=== PATIENT | female | born 1940 | race Caucasian/White ===

== ENCOUNTER 2017-08-12 17:42 | Observation (INO) | payer MEDICARE, OTHER ==
[~2017-08-12] VITALS: Ht 162.6 cm; Wt 65.9 kg
--- NOTE | ~2017-08-12 | HEMODYNAMI ---
PATIENT:JONATAN CHEN MEDICAL RECORD: [id number] : 42 LOCATION:[facility] D.7 ADMISSION DATE: 08/12/17 Generatedon:08/13/201711:12 Patient name: JONATAN CHEN Patient #: [id number] SSN: D OB: 1940 Date of study: 08/13/2017 Page: Of Hemodynamic Procedure Report Patient Data Patient Demographics Procedure consent was obtained First Name: JONATAN Gender: Female Last Name: APRIL : 1940 Patient #: [id number] Age: 76 year(s) Race: Unknown Additional ID: [id number] Contact details [address]: [address] [place] [address] State: [place] City: [place] Zip code: [address] Admission Admission Data Admission Date: 08/12/2017 Admission Time: 20:14 Room #: 2117 Procedure Procedure Types Cath Procedure Diagnostic Procedure LHC [facility] w/Coronaries PCI Procedure Coronary Stent Coronary Stent Initial Procedure Description Procedure Date Procedure Date: 08/13/2017 Procedure Start Time: 10:46 Procedure End Time: 11:09 Procedure Staff Name Function Aidan Kinsey MD Performing Physician Lauryn Lange RT Monitor David Feliciano RN Nurse Venice Weeks RT Scrub Procedure Data Cath Procedure Fluoroscopy Diagnostic fluoroscopy Total fluoroscopy Time: 5.8 time: 5.8 min min Diagnostic fluoroscopy Total fluoroscopy dose: 400 dose: 400 mGy mGy Contrast Material Contrast Material Type Amount (ml) Isovue 300 103 Entry Location Entry Primary Successful Side Size Upsize Upsize Entry Closure Brady ccessful Closure Location (Fr) 1 (Fr) 2 (Fr) Remarks Device Remarks Radial Right 6 Fr Mechanical TR artery Short Compression Estimated blood loss: 10 ml Diagnostic catheters Device Type Used For End Catheter Placement DIAGNOSTIC Richard 110cm Procedure 5Fr catheter ([id number]) Procedure Complications No complications Procedure Medications Medication Administration Route Dosage 0.9% NaCl I.V. 100 ml/hr Oxygen etCO2 Nasal cannula 2 l/min Heparin Flush Bag added to field 2 bags (1000units/500ml NS) Lidocaine 2% added to field 20 Radial Cocktail added to field 1 syringe (Verapomil 2mg/Nitro 400mcg/Heparin 1500units) Versed I.V. 1 mg Fentanyl I.V. 25 mcg Radial Cocktail I.A. 1 syringe (Verapomil 2mg/Nitro 400mcg/Heparin 1500units) Heparin Bolus I.V. 5000 units Nitroglycerin IC/IA I.C. 150 mcg Plavix P.O. 300 mg Hemodynamics Rest Heart Rate: 67 (bpm) Pressure Samples Time Site Value (mmHg) Purpose Heart Use Rate(bpm) 10:49 LV 137/5,20 EDP 63 10:49 AO 130/77(95) Pullback 64 10:49 LV 141/5,23 Pullback 64 Gradients Valve Time Site 1 Site 2 Mean SEP/DFP Peak To Heart Use (mmHg) (sec/min) Peak Rate (mmHg) (bpm) Aortic 10:49 LV AO 19 22 11 64 141/5,23 130/77(95) Calculations Valve P-P Mean Valve Index Valve Source Name Gradient Area Flow (cm2) Aortic 11 19 11 19 Snapshots Pre Cath Intra NCS Post Cath Vital Signs Time Heart Resp SPO2 etCO2 NIBP (mmHg) Rhythm Pain Sedation Rate (ipm) (%) (mmHg) Status Level (bpm) 10:31:30 77 14 99 0 161/94(132) NSR 0 (11) 10(A) , No pain 10:36:17 72 13 96 0 145/75(116) NSR 0 (11) 10(A) , No pain 10:40:58 60 19 98 35.3 146/79(115) NSR 0 (11) 10(A) , No pain 10:46:19 60 14 98 34.5 160/85(131) NSR 0 (11) 10(A) , No pain 10:51:06 63 15 98 33.8 131/74(95) NSR 0 (11) 10(A) , No pain 10:55:42 60 13 97 34.6 140/76(100) NSR 0 (11) 10(A) , No pain 11:00:23 60 12 99 33.1 139/68(97) NSR 0 (11) 10(A) , No pain 11:05:01 60 14 100 36.1 141/75(118) NSR 0 (11) 10(A) , No pain 11:09:40 108 13 99 33.8 137/76(96) NSR 0 (11) 10(A) , No pain Medications Time Medication Route Dose Verified Delivered Reason Not es Effectiveness by by 10:40:17 0.9% NaCl I.V. 100 David David Per physician ml/hr Braden Feliciano RN RN 10:40:29 Oxygen etCO2 2 l/min David David Per physician Nasal Braden Feliciano cannula RN RN 10:40:39 Heparin Flush added 2 bags David David used for Bag to Lorcatrachito Feliciano procedure (1000units/500ml field RN RN NS) 10:40:50 Lidocaine 2% added 20ml David David for local to vial Lorigan Braden anesthetic field RN RN 10:40:59 Radial Cocktail added 1 David David used for (Verapomil to syringe Lorigan Braden procedure 2mg/Nitro field RN RN 400mcg/Heparin 1500units) 10:41:09 Versed I.V. 1 mg David David for sedation Braden Feliciano RN RN 10:41:23 Fentanyl I.V. 25 mcg David David for sedation Braden Feliciano RN RN 10:47:26 Radial Cocktail I.A. 1 David Aidan for (Verapomil syringe Braden Kinsey MD vasodilation 2mg/Nitro RN 400mcg/Heparin 1500units) 10:59:17 Heparin Bolus I.V. 5000 David David for units Braden Feliciano anticoagulation RN RN 11:05:30 Nitroglycerin I.C. 150 mcg David Aidan for IC/IA Braden Kinsey MD vasodilation RN 11:11:11 Plavix P.O. 300 mg David David for Braden Feliciano antiplatelet RN RN therapy Procedure Log Time Note 10:24:37 Diagnostic Cath status Elective 10:24:49 David Feliciano RN sent for patient. Start room use. 10:24:52 Time tracking: Regular hours (M-F 7:00 - 5:00) 10:24:59 Plan of Care:Hemodynamics will remain stable., Cardiac rhythm will remain stable., Comfort level will be maintained., Respiratory function will remain adequate., Patient/ family verbilizes understanding of procedure., Procedure tolerated without complication., Recovers from procedure without complications.. 10:25:12 Patient received from Pre/Post Procedure Room to CCL 1 Alert and oriented. Tansferred to table in Supine position. 10:30:30 Warm blankets applied, and davis hugger turned on for patient comfort. 10:30:30 Correct patient and procedure confirmed by team. 10:30:32 Signed procedure consent form obtained from patient. 10:30:33 ECG and BP/O2 sat monitors applied to patient. 10:30:34 Vital chart was started 10:30:36 Baseline sample Acquired. 10:30:42 Rhythm: paced 10:30:44 Full Disclosure recording started 10:30:49 H&P Date Dictated: 08/13/2017 New H&P dictated by physician.. 10:30:51 Pre-procedure instructions explained to patient. 10:30:52 Pre-op teaching completed and patient verbalized understanding. 10:30:53 Family in waiting room. 10:30:54 Patient NPO since Midnight. 10:30:56 Is the patient allergic to Iodine/contrast media? No. 10:30:57 Was the patient premedicated? No 10:31:01 Is patient on blood thinner?Yes 10:31:04 ACC The patient was administered the following blood thiners within the last 24 hours: ACCPlavix 10:31:07 Patient diabetic? No. 10:31:09 Previous problem with sedation/anesthesia? No ? 10:31:11 Snore? Yes 10:31:12 Sleep apnea? No 10:31:13 Deviated septum? No 10:31:20 Opens mouth fully? Yes 10:31:23 Sticks out tongue? Yes 10:31:25 Airway obstruction? No ? 10:31:28 Dentures? No ? 10:31:31 Pre procedure: right dorsailis pedis pulse 2+ Normal; easily identifiable; not easily obliterated 10:31:34 Pre procedure: left dorsailis pedis pulse 2+ Normal; easily identifiable; not easily obliterated 10:31:37 Patient pain scale 0/10 ?. 10:31:43 IV patent on arrival in right forearm with 0.9% NaCl at O. 10:31:47 Lab results completed and on chart. 10:31:52 Right Radial & Right Groin area was prepped with chlora-prep and draped in sterile fashion 10::53 Alarms reviewed by RLaurie N. 10::53 Sharps counted by scrub and verified by R.N. 10:39:34 Physician arrived 10:39:34 --------ALL STOP TIME OUT------ 10:39:35 Final Timeout: patient, procedure, and site verified with staff and physician. All members of the team are in agreement. 10:39:40 Right Radial & Right Groin site verified by team. 10:39:44 Physical assessment completed. ASA score P 2 - A patient with mild systemic disease as per Aidan Kinsey MD. 10:39:49 Sedation plan: IV Moderate Sedation Medication:Versed, Fentanyl 10:40:02 Use device set Femoral Dx 10:40:03 ACIST Syringe (15598) opened to sterile field. 10:40:04 Bag Decanter (2002S) opened to sterile field. 10:40:05 Medline Cath Pack ([id number]) opened to sterile field. 10:40:05 DIAGNOSTIC WIRE .035 260cm J wire (987659) opened to sterile field. 10:40:07 ACIST Hand Control (47041) opened to sterile field. 10:40:08 ACIST Manifold (65212) opened to sterile field. 10:40:13 Tegaderm 4 x 4 (1626W) opened to sterile field. 10:40:17 0.9% NaCl 100 ml/hr I.V. was administered by David Feliciano RN; Per physician; 10:40:29 Oxygen 2 l/min etCO2 Nasal cannula was administered by David Feliciano RN; Per physician; 10:40:39 Heparin Flush Bag (1000units/500ml NS) 2 bags added to field was administered by David Feliciano RN; used for procedure; 10:40:49 SHEATH 6Fr Prelude Radial ([id number]) opened to sterile field. 10:40:50 Lidocaine 2% 20ml vial added to field was administered by David Feliciano RN; for local anesthetic; 10:40:59 Radial Cocktail (Verapomil 2mg/Nitro 400mcg/Heparin 1500units) 1 syringe added to field was administered by David Feliciano RN; used for procedure; 10:41:09 Versed 1 mg I.V. was administered by David Feliciano RN; for sedation; 10:41:23 Fentanyl 25 mcg I.V. was administered by David Feliciano RN; for sedation; 10:46:36 Procedure started. 10:46:38 Zero performed for pressure channel P1 10:46:53 Local anesthetic to right radial artery with Lidocaine 2% by Aidan Knisey MD.INITIAL ACCESS ONLY 10:47:05 A 6 Fr Short sheath was inserted into the Right Radial artery 10:47:26 Radial Cocktail (Verapomil 2mg/Nitro 400mcg/Heparin 1500units) 1 syringe I.A. was administered by Aidan Kinsey MD; for vasodilation; 10:48:06 A DIAGNOSTIC Richard 110cm 5Fr catheter ([id number]) was advanced over the wire and used for Procedure. 10:49:48 LV angiography performed. 10:50:07 RCA angiography performed. 10:50:19 EF : 60 % 10:50:38 LCA angiography performed. 10:51:32 Catheter removed. 10:51:34 Proceeding to intervention. 10:51:52 Study PCI Site: [place] mLAD has 80% stenosis. 10:52:32 BMW 190cm [place] 2 J wire ([id number]) opened to sterile field. 10:52:33 COPILOT Valve Control (1409557) opened to sterile field. 10:52:34 INFLATOR Merit BasixCompak (BM8047) opened to sterile field. 10:54:21 6 Fr XBLAD 3.5 SH guide catheter was inserted over the wire 10:55:21 GUIDE 6FR XBLAD 3.5 SH catheter ([id number]) opened to sterile field. 10:59:17 Heparin Bolus 5000 units I.V. was administered by David Feliciano RN; for anticoagulation; 10:59:21 BMW wire advanced. 11:00:22 Wire advanced across lesion. 11:02:02 Inflate balloon Inflation number: 1 A EUPHORA 3.0 x 15 Balloon ([id number]) was prepped and advanced across the Mid LAD, then inflated to 6 LANDON for 0:12 (min:sec). 11:02:17 Balloon removed over the wire. 11:03:59 Place stent Inflation Number: 2 A DEREK RX 3.5 x 18 stent ([id number]) was prepped and advanced across the Mid LAD. The stent was deployed at 12 LANDON for 0:12 (min:sec). 11:04:11 Stent catheter was removed intact over wire. 11:05:30 Nitroglycerin IC/IA 150 mcg I.C. was administered by Aidan Kinsey MD; for vasodilation; 11:06:38 Wire removed. 11:06:39 Guide catheter removed. 11:06:47 TR BAND Standard ([id number]) opened to sterile field. 11:07:09 Sheath removed intact; hemostasis achieved with Mechanical Compression to the Right Radial artery. 11:07:12 Procedure ended.(Physican Out) 11:07:23 Fluoroscopy time 05.80 minutes. 11:07:27 Fluoroscopy dose: 400 mGy 11:07:27 Flurop Dose total: 400 11:07:31 Contrast amount:Isovue 300 103ml. 11:07:34 Sharps counted by scrub and verified by R.N. 11:07:35 Insertion/operative site no bleeding no hematoma. 11:07:40 Post Procedure Pulses reassessed and unchanged 11:07:45 Post-procedure physical assessment completed. ASA score P 2 - A patient with mild systemic disease as per Aidan Kinsey MD. 11:07:52 Post procedure rhythm: sinus rhythm 11:07:56 Estimated blood loss: 10 ml 11:07:58 Post procedure instruction explained to patient.Patient verbalizes understanding. 11:07:59 Patient needs reinforcement of post procedure teaching. 11:08:16 Procedure type changed to Cath procedure, Diagnostic procedure, LHC, LHC w/Coronaries, PCI procedure, Coronary Stent, Coronary Stent Initial 11:08:17 Procedure and supply charges have been captured, reviewed, submitted and are correct. 11:09:09 Procedure Complication : No complications 11:09:12 Vital chart was stopped 11:09:13 See physician's report for complete and final results. 11:09:15 Report given to Pre/Post Procedure Room. 11:09:19 Patient transfered to Pre/Post Procedure Room with Bed. 11:09:22 Procedure ended. 11::22 Full Disclosure recording stopped 11:09:30 End room use (Document Last) 11:09:36 ACC-PCI Only Patient was given prescriptions, or instructed by Aidan Kinsey MD to start/continue the following medications upon discharge: Plavix 11:09:58 TR band inflated with 10cc of air. 11:11:11 Plavix 300 mg P.O. was administered by David Feliciano RN; for antiplatelet therapy; Intervention Summary Intervention Notes Time ActionType Lesion and Equipment Used Action# Pressure Duration Attributes 11:02:02 Inflate Mid LAD EUPHORA 3.0 x 1 6 00:12 balloon 15 Balloon ([id number]) 11:03:59 Place stent Mid LAD DEREK RX 3.5 x 2 12 00:12 18 stent ([id number]) Device Usage Item Name Manufacture Quantity Catalog Number Hospital Part Current Minimal Lot# / Charge Number Stock Stock Serial# Code ACIST Syringe Acist 1 72554 779127 672420 [id number] 20 (96639) [employer] Bag Decanter Microtek 1 2001S 186935 65547 233426 5 () Medical Inc. Medline Cath Cardinal 1 [id number] 564564 20011 066284 5 QuantiaMD ([id number]) DIAGNOSTIC WIRE St Robert 1 157931 714957 657699 877962 30 .035 260cm J wire (263496) ACIST Hand Acist 1 43053 082117 203807 796144 5 Control (40801) [employer] Inc ACIST Manifold Acist 1 65458 770000 323067 851949 5 (96498) [employer] Inc Tegaderm 4 x 4 3M 1 1626W 949645 230974 233206 5 (1626W) SHEATH 6Fr Merit 1 [id number] 942769 053998 394750 5 Prelude Radial Medical ([id number]) DIAGNOSTIC Terumo 1 405024 116730 433899 177254 5 Richard 110cm 5Fr catheter (354204) BMW 190cm [place] 1 [id number] 287122 90719 527990 5 [place] 2 J Vascular wire ([id number]) COPILOT Valve [place] 1 0211390 393878 938994 333637 5 Control Vascular (0355952) INFLATOR Merit Merit 1 NZ9338 289218 542530 415604 15 [employer] ([id number]) GUIDE 6FR XBLAD Cardinal 1 [id number] 422647 127200 245234 3 3.5 Aptera ([id number]) EUPHORA 3.0 x Medtronic 1 [id number] 447969 603748 767303 5 [id number] 15 Balloon ([id number]) DEREK RX 3.5 x Medtronic 1 [id number] 308631 6262168 658345 5 [id number] 18 stent ([id number]) TR BAND Terumo 1 [id number] 679803 635833 116646 40 Standard ([id number]) Signature Audit [place] Stage Time Signature Unsigned Intra-Procedure 08/13/2017 Lauryn Lange 11:12:03 AM RT(R) Signatures Monitor : Lauryn Lange Signature : RT Date : Time : [place] [address] [place] [address]
[2017-08-12 18:16] LABS: BASOPHILS 0.4 % (0-2); EOSINOPHILS 1.6 % (0-7); HEMATOCRIT 40.5 % (36.0-48.0); HEMOGLOBIN 13.7 g/dL (12-16); IMMATURE GRANULOCYTES 0.1 % (0-5); LYMPHOCYTES 24.7 % (15-50); MCH 32.9 pg (26.0-34.0); MCHC 33.8 g/dL (31.0-37.0); MCV 97.4 fL (80.0-100.0); MEAN PLATELET VOLUME 10.4 fL (7.4-10.4); MONOCYTES 7.5 % (2-11); NEUTROPHILS 65.7 % (40-80); PLATELET COUNT 232 10x3/uL (130-400); RBC 4.16 10x6/uL (4.00-5.40); WBC 7.7 10x3/uL (4.8-10.8)
[2017-08-12 18:26] LABS: ALBUMIN 3.8 g/dL (3.4-5.0); ALKALINE PHOSPHATASE 50 U/L (46-116); ALT (SGPT) 28 U/L (10-68); BILIRUBIN - TOTAL 0.44 mg/dL (0.2-1.3); CALC OSMOLALITY 282 mosm/kg (275-300); CALCIUM 9.4 mg/dL (8.5-10.1); CARBON DIOXIDE 25.4 mmol/L (21.0-32.0); CHLORIDE - SERUM 104 mmol/L (98-107); CREATININE - SERUM 0.8 mg/dL (0.6-1.3); GLUCOSE 97 mg/dL (74-106); POTASSIUM - SERUM 4.1 mmol/L (3.5-5.1); PROTEIN - SERUM 7.7 g/dL (6.4-8.2); SODIUM 141 mmol/L (136-145); UREA NITROGEN 19 mg/dL (7-18); eGFR NON AFRICAN AMERICAN 74 mL/min (90-120)
[2017-08-12 18:37] LABS: CHOL - HDL RATIO 4.6 ratio (2.3-4.1); CHOLESTEROL, TOTAL 273 mg/dL (0-200); CKMB 2.8 U/L (0.0-3.6); CREATINE KINASE 94 UL (21-215); HDL CHOLESTEROL 59 mg/dL (32-96); LDL CHOLESTEROL 180 mg/dL (0-100); LDL-HDL RATIO 3.1 ratio (1.5-3.5); TRIGLYCERIDE 172 mg/dL (30-200)
[2017-08-12 18:38] LABS: TROPONIN-I < 0.017 ng/mL (0.000-0.060)
[2017-08-12 18:52] LABS: INR 1.03 (0.85-1.17); PROTIME 13.1 SECONDS (11.6-15.0)
[2017-08-12 19:09] LABS: LIPASE 115 U/L (73-393); PRO BNP 139 pg/mL (0-450)
[2017-08-12 19:14] LABS: APPEARANCE CLEAR (CLEAR); BILIRUBIN NEGATIVE (NEGATIVE); COLOR YELLOW (YELLOW); GLUCOSE NEGATIVE (NEGATIVE); KETONE NEGATIVE (NEGATIVE); NITRITE NEGATIVE (NEGATIVE); PROTEIN NEGATIVE (NEGATIVE); UROBILINOGEN NORMAL (NORMAL)
[2017-08-12] MEDS ORDERED: ZESTRIL10 MG PO (21:52)
[2017-08-12] MEDS ORDERED: ESTRACE1 MG PO (21:53)
[2017-08-13] VITALS: BP 143/72
[2017-08-13 01:06] LABS: CKMB 1.8 U/L (0.0-3.6); CREATINE KINASE 52 UL (21-215)
[2017-08-13 01:07] LABS: TROPONIN-I < 0.017 ng/mL (0.000-0.060)
[2017-08-13 05:25] VITALS: BP 149/75
[2017-08-13 05:43] LABS: BASOPHILS 0.9 % (0-2); EOSINOPHILS 1.7 % (0-7); HEMATOCRIT 35.6 % (36.0-48.0); HEMOGLOBIN 11.8 g/dL (12-16); LYMPHOCYTES 33.8 % (15-50); MCH 32.3 pg (26.0-34.0); MCHC 33.1 g/dL (31.0-37.0); MCV 97.5 fL (80.0-100.0); MEAN PLATELET VOLUME 10.3 fL (7.4-10.4); MONOCYTES 9.9 % (2-11); NEUTROPHILS 53.7 % (40-80); PLATELET COUNT 226 10x3/uL (130-400); RBC 3.65 10x6/uL (4.00-5.40); RDW 13.1 % (11.5-14.5)
[2017-08-13 05:48] LABS: WBC 4.6 10x3/uL (4.8-10.8)
[2017-08-13 06:07] LABS: ALKALINE PHOSPHATASE 41 U/L (46-116); ALT (SGPT) 23 U/L (10-68); CALC OSMOLALITY 285 mosm/kg (275-300); CALCIUM 8.6 mg/dL (8.5-10.1); CARBON DIOXIDE 25.4 mmol/L (21.0-32.0); CHLORIDE - SERUM 109 mmol/L (98-107); CREATINE KINASE 51 UL (21-215); CREATININE - SERUM 0.7 mg/dL (0.6-1.3); GLUCOSE 90 mg/dL (74-106); POTASSIUM - SERUM 3.7 mmol/L (3.5-5.1); SODIUM 143 mmol/L (136-145); TROPONIN-I < 0.017 ng/mL (0.000-0.060); UREA NITROGEN 16 mg/dL (7-18); eGFR NON AFRICAN AMERICAN 86 mL/min (90-120)
[2017-08-13 06:41] VITALS: BP 143/72; Ht 162.6 cm; Wt 65.9 kg
[2017-08-13 10:05] VITALS: BP 147/77
[2017-08-13] MEDS ORDERED: ASPIRIN325 MG PO (15:51)
[2017-08-13] MEDS ORDERED: PLAVIX75 MG PO (15:51)
[2017-08-13 16:58] VITALS: BP 130/86
== END 2017-08-13 17:05 | disposition home or self-care (01) ==
LOC: D.ER 17:42 → D.EDHOLD 20:14 → D.M2 20:14 → OBSVTIME 20:14 → D.M2 20:14
PROVIDERS: Emergency Medicine; Family Medicine; Nurse Practitioner Family
DX: I25.110 Atherosclerotic heart disease of native coronary artery with unstable angina pectoris (principal); I10 Essential (primary) hypertension; Z87.891 Personal history of nicotine dependence; Z95.0 Presence of cardiac pacemaker
CPT/HCPCS: 93458; C9600

== ENCOUNTER → 2018-01-05 07:56 | Outpatient (CLI) | payer MEDICARE, OTHER ==
[~2018-01-05] VITALS: Ht 162.6 cm; Wt 65.9 kg
--- NOTE | ~2018-01-05 | HEMODYNAMI ---
PATIENT:JONATAN CHEN MEDICAL RECORD: [id number] : 42 LOCATION:[facility] ADMISSION DATE: 01/05/18 Generatedon:01/05/201811:39 Patient name: JONATAN CHEN Patient #: [id number] SSN: D OB: 1940 Date of study: 01/05/2018 Page: Of Hemodynamic Procedure Report Patient Data Patient Demographics Procedure consent was obtained First Name: JONATAN Gender: Female Last Name: APRIL : 1940 Patient #: [id number] Age: 77 year(s) Race: Unknown Additional ID: [id number] Contact details [address]: [address] [place] [address] State: [place] City: [place] Zip code: [address] Past Medical History Allergies Allergen Reaction Date Comments Reported Other allergy 01/05/2018 statins Admission Admission Data Admission Date: 01/05/2018 Admission Time: 7:56 Lab Results Lab Result Date: 01/05/2018 Lab Result Time: 8:50 Biochemistry Name Units Result Min Max BUN mg/dl 19 --(----)*- 7 18 Creatinine mg/dl 0.8 --(-*--)-- 0.6 1.3 CBC Name Units Result Min Max Hematocrit % 38.1 *-(----)-- 42 54 Hemoglobin g/dl 12.9 -*(----)-- 13.5 17.5 Procedure Procedure Types Cath Procedure Diagnostic Procedure PPM/ICD Permanent Pacer Generator Exg. Procedure Description Procedure Date Procedure Date: 01/05/2018 Procedure Start Time: 11:24 Procedure Staff Name Function Parveen Cali MD Performing Physician Jer Putnam MD Assisting physician Melissa Barnhart RT Monitor David Feliciano RN Nurse Adi Chong RT Scrub Krish Garcia RT Sales Force Developer Procedure Data Cath Procedure Fluoroscopy Diagnostic fluoroscopy Total fluoroscopy Time: 0 time: 0 min min Estimated blood loss: 5 ml Procedure Medications Medication Administration Route Dosage 0.9% NaCl I.V. 100 ml/hr Oxygen etCO2 Nasal cannula 2 l/min Lidocaine 1% with added to field 20 ml Epi Ancef (1Gm/50ml NS) I.V.P.B 1 g Ancef Irrigation Topical 1 g (1gm/500ml NS) Versed I.V. 2 mg Fentanyl I.V. 100 mcg Versed I.V. 2 mg Fentanyl I.V. 100 mcg Versed I.V. 1 mg Fentanyl I.V. 50 mcg Hemodynamics Rest HGB: 12.9 (g/dl) Heart Rate: 74 (bpm) Snapshots Pre Cath Intra NCS Post Cath Vital Signs Time Heart Resp SPO2 etCO2 NIBP (mmHg) Rhythm Pain Sedation Rate (ipm) (%) (mmHg) Status Level (bpm) 9:47:36 69 14 100 3.7 188/87(125) Paced 0 (11) 10(A) , No pain 9:51:55 68 29 100 38.3 153/90(101) Paced 0 (11) 10(A) , No pain 9:56:09 67 12 100 23.2 138/85(121) Paced 0 (11) 10(A) , No pain 10:00:22 65 12 100 33 142/82(121) Paced 0 (11) 10(A) , No pain 10:04:37 65 15 100 35.3 141/83(127) Paced 0 (11) 10(A) , No pain 10:08:57 66 14 100 35.3 132/79(116) Paced 0 (11) 10(A) , No pain 10:13:13 65 19 100 33.8 129/80(118) Paced 0 (11) 10(A) , No pain 10:17:27 65 22 99 31.5 139/82(105) Paced 0 (11) 10(A) , No pain 10:21:39 67 15 99 28.5 141/89(113) Paced 0 (11) 10(A) , No pain 10:25:59 68 14 100 33 137/76(124) Paced 0 (11) 10(A) , No pain 10:30:17 67 15 99 31.5 135/79(110) Paced 0 (11) 10(A) , No pain 10:34:33 68 15 99 36.8 141/78(131) Paced 0 (11) 10(A) , No pain 10:38:51 65 10 99 29.2 121/77(107) Paced 0 (11) 10(A) , No pain 10:43:03 65 13 99 29.2 113/74(105) Paced 0 (11) 10(A) , No pain 10:47:11 63 18 99 32.3 120/79(95) Paced 0 (11) 10(A) , No pain 10:51:19 65 23 99 32.3 119/85(109) Paced 0 (11) 10(A) , No pain 10:55:28 63 47 99 33 124/78(92) Paced 0 (11) 10(A) , No pain 10:59:40 67 17 98 31.5 127/79(92) Paced 0 (11) 10(A) , No pain 11:03:54 65 19 99 33.8 129/76(114) Paced 0 (11) 10(A) , No pain 11:08:08 66 19 99 37.5 124/78(101) Paced 0 (11) 10(A) , No pain 11:12:22 67 19 99 36 127/74(117) Paced 0 (11) 10(A) , No pain 11:16:34 67 13 99 33 141/84(122) Paced 0 (11) 10(A) , No pain 11:20:52 68 15 99 31.5 145/79(117) Paced 0 (11) 10(A) , No pain 11:25:06 77 11 99 41.3 140/88(118) Paced 0 (11) 10(A) , No pain 11:29:25 65 25 93 31.5 121/79(104) Paced 0 (11) 9(A) , No pain 11:33:37 69 5 98 36.7 117/75(110) Paced 0 (11) 9(A) , No pain 11:37:50 71 22 99 38.3 138/67(119) Paced 0 (11) 9(A) , No pain Medications Time Medication Route Dose Verified Delivered Reason Notes Effectiv eness by by 9:52:39 0.9% NaCl I.V. 100 David David Per ml/hr Braden avendano RN RN 9:52:50 Oxygen etCO2 2 David David Per Nasal l/min Braden Feliciano physician cannula RN RN 9:53:02 Lidocaine added 20 ml David David for local 1% with Epi to Lorigan Lorigan anesthetic field RN RN 9:53:33 Ancef I.V.P.B 1 g David David Per (1Gm/50ml Lorigan Lorigan physician NS) RN RN 9:54:41 Ancef Topical 1 g David David used for Irrigation Lorigan Lorigan procedure (1gm/500ml RN RN NS) 11:22:43 Versed I.V. 2 mg David David for Lorigan Lorigan sedation RN RN 11:22:53 Fentanyl I.V. 100 David David for mcg Lorigan Lorigan sedation RN RN 11:24:56 Versed I.V. 2 mg David David for Lorigan Lorigan sedation RN RN 11:25:02 Fentanyl I.V. 100 David David for mcg Lorigan Lorigan sedation RN RN 11:26:33 Versed I.V. 1 mg David David for Lorigan Lorigan sedation RN RN 11:26:41 Fentanyl I.V. 50 David David for mcg Lorigan Lorigan sedation RN mine inspector federal Log Time Note 9:20:58 Melissa Counts RT(R) sent for patient. Start room use. 9:25:17 Time tracking: Regular hours (M-F 7:00 - 5:00) 9:25:21 Plan of Care:Hemodynamics will remain stable., Cardiac rhythm will remain stable., Comfort level will be maintained., Respiratory function will remain adequate., Patient/ family verbilizes understanding of procedure., Procedure tolerated without complication., Recovers from procedure without complications.. 9:38:42 Patient received from Pre/Post Procedure Room to CCL 3 Alert and oriented. Tansferred to table in Supine position. 9:38:43 Warm blankets applied, and davis hugger turned on for patient comfort. 9:38:43 Correct patient and procedure confirmed by team. 9:38:44 Signed procedure consent form obtained from patient. 9:38:45 ECG and BP/O2 sat monitors applied to patient. 9:40:16 H&P Date Dictated: 01/02/2018 Within 30 days and on chart., H&P Addendum completed by physician on day of procedure. (MUST COMPLETE FOR ALL OUTPATIENTS). 9:40:18 Pre-procedure instructions explained to patient. 9:40:18 Pre-op teaching completed and patient verbalized understanding. 9:40:19 Family in waiting room. 9:40:20 Patient NPO since Midnight. 9:40:42 Patient allergic to Other allergystatins 9:40:44 Is the patient allergic to Iodine/contrast media? No. 9:42:37 Is patient on blood thinner?No 9:42:38 Patient diabetic? No. 9:42:41 Previous problem with sedation/anesthesia? No ? 9:42:43 Snore? No 9:42:44 Sleep apnea? No 9:42:45 Deviated septum? No 9:42:45 Opens mouth fully? Yes 9:42:46 Sticks out tongue? Yes 9:42:47 Airway obstruction? No ? 9:42:50 Dentures? No ? 9:42:53 Patient pain scale 0/10 ?. 9:43:05 IV patent on arrival in left wrist with 0.9% NaCl at O. 9:45:38 Lab Result : Creatinine 0.8 mg/dl 9:45:38 Lab Result : BUN 19 mg/dl 9:45:38 Lab Result : Hemoglobin 12.9 g/dl 9:45:38 Lab Result : Hematocrit 38.1 % 9:45:40 Lab results completed and on chart. 9:45:44 Right chest area was prepped with chlora-prep and draped in sterile fashion 9:45:45 Alarms reviewed by R. N. 9:45:46 Sharps counted by scrub and verified by R.N. 9:45:59 Medtronic jewelry sales representative Eleazar Saxenaoe present for procedure. 9:46:14 Vital chart was started 9:46:16 Baseline sample Acquired. 9:46:20 Rhythm: paced 9:46:22 Full Disclosure recording started 9:46:36 Use device set MIGNON PPM 9:46:42 Cautery Tip Wireline Field Operator opened to sterile field. 9:46:43 Cautery Pushbutton Pencil opened to sterile field. 9:46:43 Mepilex Dressing ([id number]) opened to sterile field. 9:46:48 2-0 Ticron Multipack ([id number]) opened to sterile field. 9:46:49 3-0 Vicryl Single Pack [id number] opened to sterile field. 9:46:49 5-0 Monocryl PS2 [id number] opened to sterile field. 9:46:59 Grounding pad site Left thigh. 9:47:01 Grounding pad site free from injury. 9:48:31 TrenStara MRI PPM Dual Generator [id number] opened to sterile field. 9:50:30 Pre sharps counted by scrub and verified by RN: Sutures: 7; Sponges: 5; Stick needles: 0; Skin needles: 2; Blade: 1; Cautery: 1 9:52:39 0.9% NaCl 100 ml/hr I.V. was administered by David Feliciano RN; Per physician; 9:52:50 Oxygen 2 l/min etCO2 Nasal cannula was administered by David Feliciano RN; Per physician; 9:53:02 Lidocaine 1% with Epi 20 ml added to field was administered by David Feliciano RN; for local anesthetic; 9:53:33 Ancef (1Gm/50ml NS) 1 g I.V.P.B was administered by David Feliciano RN; Per physician; 9:54:41 Ancef Irrigation (1gm/500ml NS) 1 g Topical was administered by David Feliciano RN; used for procedure; 10:01:14 Physician paged 10:08:53 PHYSICIAN RETURNED PAGE. IN PROCEDURE IN OR. RUNNING APPROXIMATELY 30 MINUTES LATE. 10:14:10 The patient's family notified of status per Krish Garcia RT(R) (CV). 10:34:28 PHYSICIAN STILL IN OR. WILL BE APPROXIMATELY ANOTHER 30 MINUTES. 10:37:39 The patient's family notified of status per Melissa Barnhart RT(R). 11:16:43 SURGEON STILL HAS NOT ARRIVED. PATIENT AND FAMILY NOTIFIED. 11:20:35 Final Timeout: patient, procedure, and site verified with staff and physician. All members of the team are in agreement. 11:20:41 Right chest site verified by team. 11:20:44 Physical assessment completed. ASA score P 2 - A patient with mild systemic disease as per Jer Putnam MD. 11:20:57 Sedation plan: IV Moderate Sedation Medication:Versed, Fentanyl 11:22:43 Versed 2 mg I.V. was administered by David Feliciano RN; for sedation; ::53 Fentanyl 100 mcg I.V. was administered by David Lorigan RN; for sedation; 11:24:16 Lidocaine 1% w/epi was administered to right subclavicular area by Jer Putnam MD . 11:24:56 Versed 2 mg I.V. was administered by David Feliciano RN; for sedation; 11:25:02 Fentanyl 100 mcg I.V. was administered by David Feliciano RN; for sedation; 11:25:23 Incision made to right subclavicular area. 11:26:24 Generator pocket made/opened. 11::33 Versed 1 mg I.V. was administered by David Feliciano RN; for sedation; 11::41 Fentanyl 50 mcg I.V. was administered by David Feliciano RN; for sedation; 11::50 PPM Dual was removed.. 11:29:11 NEW PPM WAS ATTACHED AND INSERTED INTO THE POCKET. 11:29:40 Device pocket was irrigated with Ancef. 11:30:28 Subcutaneous closure was completed with 3-0 vicryl. 11:35:32 Skin closure was completed with 5-0 monocryl. 11:35:44 Rt Chest incision was dressed with Mepilex dressing. 11:35:48 Procedure ended.(Physican Out) 11:36:18 Fluoroscopy time 00.00 minutes. 11:36:37 Post sharps counted by scrub and verified by RN: Sutures: 7; Sponges: 5; Stick needles: 0; Skin needles: 2; Blade: 1; Cautery: 1 11:36:42 Sharps counted by scrub and verified by R.N. 11:36:47 Insertion/operative site no bleeding no hematoma. 11:37:00 Post-op/insertion site Right Chest area dressed using a Mepilex dressing. 11:37:07 Post Chest area:stable, clean and dry 11:37:10 Post Procedure Pulses reassessed and unchanged 11:37:13 Post-procedure physical assessment completed. ASA score P 2 - A patient with mild systemic disease as per Parveen Cali MD. 11:37:18 Post procedure rhythm: paced 11:37:23 Estimated blood loss: 5 ml 11:37:25 Post procedure instruction explained to patient.Patient verbalizes understanding. 11:37:25 Patient needs reinforcement of post procedure teaching. 11:38:36 Procedure and supply charges have been captured, reviewed, submitted and are correct. 11:38:39 See physician's report for complete and final results. 11:39:04 Vital chart was stopped 11:39:08 Report given to Pre/Post Procedure Room. 11:39:11 Patient transfered to Pre/Post Procedure Room with Stretcher. 11:39:13 End room use (Document Last) Device Usage Item Name Manufacture Quantity Catalog Hospital Part Current Minimal Lot# / Serial# Number Charge Number Stock Stock Code Cautery Tip Microtek 1 [id number] 5 Wireline Field OperatorVeracity [employer] Cautery Microtek 1 [id number] 5 Pushbutton [employer] Pencil Mepilex Cardinal 1 [id number] [id number] [id number] [id number] 5 Dressing Health (482298) 2-0 Ticron Ethicon 1 [id number] [id number] 32457 [id number] 5 Multipack ([id number]) 3-0 Vicryl Ethicon 1 [id number] [id number] [id number] 5 Single Pack [id number] 5-0 Monocryl Ethicon 1 [id number] 881918 286801 5 PS2 Y495G Medtronic Medtronic 1 [id number] 5 2018-09-12 Advisa MRI SN:[id number] PPM Dual Generator [id number] Signature Audit Orange Stage Time Signature Unsigned Intra-Procedure 01/05/2018 Melissa 11:39:40 AM Counts RT(R) Signatures Monitor : Melissa Signature : Counts RT Date : Time : [facility] [address] [place] [address]
--- NOTE | ~2018-01-05 | OP ---
PATIENT NAME: JONATAN CHEN MEDICAL RECORD: [id number] :42 LOCATION:[facility] ADMISSION DATE: SURGEON: JANINA CROW MD DATE OF OPERATION: 01/05/2018 PREOPERATIVE DIAGNOSES: 1. End-of-life generator. 2. Coronary artery disease. 3. Sick sinus syndrome. 4. Hypertension. 5. Hyperlipidemia. POSTOPERATIVE DIAGNOSES: 1. End-of-life generator. 2. Coronary artery disease. 3. Sick sinus syndrome. 4. Hypertension. 5. Hyperlipidemia. PROCEDURE: Right subclavian vein pacemaker generator exchange. SURGEON: Janina Crow MD REPORT OF PROCEDURE: The patient's right chest was prepped and draped in sterile fashion. A 20 mL of 1% lidocaine with epinephrine was infused into the surrounding tissues. An oblique incision was made overlying the pacemaker. Electrocautery was then used to dissect through the subcutaneous tissues. We eventually eviscerated out the pacemaker and disconnected it from the indwelling leads. The patient was 100% pacemaker dependent, so we did not check the leads. We immediately placed a new pacemaker generator on the leads and this appeared to be functioning appropriately. This was placed into the subcutaneous pouch and then irrigated out with antibiotic solution. The wound was then reapproximated with interrupted 3-0 Vicryl and the skin was closed with running subcutaneous 5-0 Monocryl. COMPLICATIONS: None. CONDITION: Stable. ANESTHESIA: Local MAC. BLOOD LOSS: Minimal. TRANSINT:[id number] Voice Confirmation ID: [id number] DOCUMENT ID: [id number] JANINA CROW MD at 1714 CC: TANYA STEVENSON [id number] DICTATION DATE: 01/05/18 1139 ICT SALES REPRESENTATIVE: 01/05/18 1147 DEP CLI 01/05/18 [place] [id number]
[~2018-01-05 07:56] MED LIST: ASPIRIN325 MG PO; ATROVENT 0.02%2.5 ML NS; BAYER CHEWABLE81 MG PO; ESTRACE1 MG PO; NORCO 10-325 TA1 TAB PO; PLAVIX75 MG PO; ZESTRIL10 MG PO
[2018-01-05 08:46] VITALS: BP 167/74; Ht 162.6 cm; Wt 65.9 kg
[2018-01-05 09:00] LABS: HEMATOCRIT 38.1 % (36.0-48.0); HEMOGLOBIN 12.9 g/dL (12-16); MCH 32.5 pg (26.0-34.0); MCHC 33.9 g/dL (31.0-37.0); MEAN PLATELET VOLUME 10.1 fL (7.4-10.4); RBC 3.97 10x6/uL (4.00-5.40); RDW 12.9 % (11.5-14.5); WBC 4.8 10x3/uL (4.8-10.8)
[2018-01-05 09:08] LABS: CALCIUM 8.8 mg/dL (8.5-10.1); CARBON DIOXIDE 26.2 mmol/L (21.0-32.0); CREATININE - SERUM 0.8 mg/dL (0.6-1.3); POTASSIUM - SERUM 4.2 mmol/L (3.5-5.1)
[2018-01-05 09:39] LABS: APTT 24.3 SECONDS (22.8-39.4); INR 0.93 (0.85-1.17); PROTIME 12.1 SECONDS (11.6-15.0)
== END | disposition home or self-care (01) ==
LOC: D.CATH 07:56
PROVIDERS: Internal Medicine Interventional Cardiology
DX: Z45.010 Encounter for checking and testing of cardiac pacemaker pulse generator [battery] (principal); I25.10 Atherosclerotic heart disease of native coronary artery without angina pectoris; I49.5 Sick sinus syndrome; I10 Essential (primary) hypertension; E78.5 Hyperlipidemia, unspecified; Z01.812 Encounter for preprocedural laboratory examination

== ENCOUNTER 2018-07-21 08:24 | Emergency (ER) | payer MEDICARE, OTHER ==
[~2018-07-21] VITALS: Ht 162.6 cm; Wt 65.9 kg
[2018-07-21 08:27] VITALS: Ht 162.6 cm; Wt 65.9 kg
[2018-07-21] MEDS ORDERED: ULTRAM50 MG PO (08:28)
[2018-07-21 08:49] LABS: BASOPHILS 0.8 % (0-2); EOSINOPHILS 2.3 % (0-7); HEMATOCRIT 40.7 % (36.0-48.0); HEMOGLOBIN 13.5 g/dL (12-16); IMMATURE GRANULOCYTES 0.2 % (0-5); LYMPHOCYTES 34.3 % (15-50); MCH 31.8 pg (26.0-34.0); MCHC 33.2 g/dL (31.0-37.0); MEAN PLATELET VOLUME 10.1 fL (7.4-10.4); MONOCYTES 11.7 % (2-11); NEUTROPHILS 50.7 % (40-80); PLATELET COUNT 238 10x3/uL (130-400); RBC 4.24 10x6/uL (4.00-5.40); RDW 13.3 % (11.5-14.5); WBC 6.1 10x3/uL (4.8-10.8)
[2018-07-21 09:01] LABS: ALBUMIN 3.7 g/dL (3.4-5.0); ALKALINE PHOSPHATASE 49 U/L (46-116); ALT (SGPT) 29 U/L (10-68); CALC OSMOLALITY 275 mosm/kg (275-300); CALCIUM 8.6 mg/dL (8.5-10.1); CARBON DIOXIDE 25.3 mmol/L (21.0-32.0); CHLORIDE - SERUM 101 mmol/L (98-107); CREATININE - SERUM 0.9 mg/dL (0.6-1.3); GLUCOSE 111 mg/dL (74-106); POTASSIUM - SERUM 4.2 mmol/L (3.5-5.1); PROTEIN - SERUM 7.5 g/dL (6.4-8.2); SODIUM 136 mmol/L (136-145); UREA NITROGEN 21 mg/dL (7-18); eGFR NON AFRICAN AMERICAN 64 mL/min (90-120)
[2018-07-21 09:07] LABS: APTT 24.5 SECONDS (22.8-39.4); INR 0.95 (0.85-1.17); PROTIME 12.2 SECONDS (11.6-15.0)
[2018-07-21 09:11] LABS: CKMB 3.1 U/L (0.0-3.6); CREATINE KINASE 84 UL (21-215)
[2018-07-21 09:12] LABS: TROPONIN-I < 0.017 ng/mL (0.000-0.060)
[2018-07-21 11:10] VITALS: BP 158/95
== END 2018-07-21 11:13 | disposition home or self-care (01) ==
LOC: D.ER 08:24
PROVIDERS: Family Medicine
DX: R07.89 Other chest pain (principal); I25.10 Atherosclerotic heart disease of native coronary artery without angina pectoris; I10 Essential (primary) hypertension

== ENCOUNTER → 2018-07-26 10:40 | Outpatient (CLI) | payer MEDICARE, BC ==
[2018-07-21 08:27] VITALS: BMI 24.9
[~2018-07-26 10:40] MED LIST changes: +ULTRAM50 MG PO
--- NOTE | 2018-07-28 15:13 | ST ---
PATIENT:JONATAN CHEN MEDICAL RECORD: [id number] SEX: F LOCATION:[facility] ORDER #: ADMISSION DATE: 07/26/18 AGE OF PATIENT: 77 REFERRING PHYSICIAN: INTERPRETING PHYSICIAN: TANYA STEVENSON MD DATE OF SERVICE: 07/26/2018 PROCEDURE: Nuclear stress test. INDICATION: Angina and coronary artery disease and hypertension. She was exercised on standard Addison protocol for 5 minutes and 45 seconds achieving greater than 85% max target heart rate response with 31 mCi of sestamibi injected at peak stress, 11 mCi were used previously for rest images. FINDINGS: Gated SPECT reveals preserved ejection fraction at 87% with good wall motion and thickening and brightening throughout all segments. SPECT imaging Cardiolite was used as myocardial fusion agent. There is homogeneous uptake throughout all segments at rest and stress with no evidence of inducible ischemia or previous infarction. OVERALL IMPRESSION: 1. This is a normal nuclear stress test with no evidence of inducible ischemia or previous infarction. 2. Gated SPECT reveals a preserved ejection fraction at 87%. In this patient with ongoing symptomatology, the current scan does not suggest the presence of hemodynamically significant coronary artery disease. Evaluate noncardiac etiology of chest pain. TRANSINT:[id number] Voice Confirmation ID: [id number] DOCUMENT ID: [id number] TANYA STEVENSON MD at 1513 CC: ARACELI BARBOZA MD [id number] DICTATION DATE: 07/26/18 1518 UPHOLSTERY TECH: 07/27/18 0832 DEP CLI 07/26/18 [place] [id number]
== END | disposition home or self-care (01) ==
LOC: D.HCCARDIO 10:40
PROVIDERS: ATTEND Internal Medicine Interventional Cardiology
DX: I25.119 Atherosclerotic heart disease of native coronary artery with unspecified angina pectoris (principal)